=== PATIENT | female | born 1955 | race Caucasian/White ===

== ENCOUNTER 2017-02-17 06:48 | Emergency (ER) | payer BC, SELFPAY ==
[~2017-02-17] VITALS: Ht 157.5 cm; Wt 76.7 kg
[~2017-02-17 06:48] MED LIST: AMLO5TAB2 PO; ASPI81TA85 PO; HYDR-3713 PO; OMEP20CA3 PO; TIZA4CAP3 PO
[2017-02-17 06:53] VITALS: BP 160/92
[2017-02-17] MEDS ORDERED: MELO7.5T6 (07:00)
[2017-02-17] MEDS ORDERED: PRED20TA PO (07:28)
[2017-02-17] MEDS ORDERED: ROBA500T PO (07:28)
[2017-02-17] MEDS ORDERED: ULTR50TA PO (07:28)
== END 2017-02-17 07:36 | disposition home or self-care (01) ==
LOC: M ED 07:36
DX: M54.41 Lumbago with sciatica, right side (principal); M54.42 Lumbago with sciatica, left side

== ENCOUNTER → 2017-09-08 | Outpatient (CLI) | payer SELFPAY ==
[~2017-09-08] MED LIST changes: +IBUP-1022 PO; +IMOD2TAB16 PO; +LOMO2.5T PO; +MELO7.5T7; +PRED20TA PO; +ROBA500T PO; +ULTR50TA8 PO; +ZOFR4TAB3 PO
--- NOTE | 2017-09-08 13:24 | REP ---
PELVIC ULTRASOUND: Real-time sonographic evaluation of the pelvis performed utilizing transabdominal and endovaginal technique. The urinary bladder measures 3.1 x 3.1 x 5.2 cm. Uterus measures 6.5 x 2.5 x 4.1 cm. Endometrial thickness is 2 mm. Nabothian cysts are seen in the region of the cervix. Right ovary measures 4.8 x 3.1 x 4.1 cm. There is a complex septated cyst of the right ovary 4.1 x 3.0 x 3.9 cm. Left ovary measures 2.4 x 2.1 x 2.1 cm and also contains a septated cyst measuring 2.0 x 1.8 x 1.5 cm. There is blood flow seen in each ovary with duplex Doppler evaluation, with no torsion, RI right ovary is 0.48 and left ovary 0.75. No free fluid is seen. IMPRESSION: Bilateral septated cysts of the ovaries, right larger than left as discussed above. The septation in the right ovarian cyst is somewhat thick with underlying internal echoes and therefore this is not a simple cyst. In a postmenopausal patient, differential diagnosis would include cystadenoma or cystadenocarcinoma. Consider surgical evaluation. Signed by Santos Arriola MD 09/08/2017 01:32 P
== END ==
LOC: M RAD 11:02
PROVIDERS: ATTEND Physician Assistant Medical
DX: N83.202 Unspecified ovarian cyst, left side (principal); N83.201 Unspecified ovarian cyst, right side

== ENCOUNTER → 2017-11-06 | Outpatient (CLI) | payer SELFPAY ==
[2017-11-06 20:23] LABS: CA 125 12.9 U/ML (<30.2)
== END ==
LOC: M WUC 15:51
DX: D27.1 Benign neoplasm of left ovary (principal)

== ENCOUNTER → 2017-12-23 | Outpatient (REF) | payer SELFPAY ==
[2017-12-23 20:37] LABS: BASO % 0.5 % (0.0-1.0); EOS # 0.1 10^3/uL (0.0-0.50); EOS % 0.9 % (0.0-3.0); HEMATOCRIT 42.2 % (36.0-47.0); HEMOGLOBIN 13.8 g/dl (12.0-16.0); IMMATURE GRANULOCYTE % 0.1 % (0-3.0); LYMPH # 3.2 10^3/uL (1.5-4.5); LYMPH % 42.1 % (24.0-44.0); MEAN CORPUSCULAR HEMOGLOBIN 28.5 pg (27.0-33.0); MEAN CORPUSCULAR HGB CONC 32.7 g/dl (32.0-36.5); MEAN CORPUSCULAR VOLUME 87.2 fl (80.0-96.0); MONO # 0.4 10^3/uL (0.0-0.8); MONO % 5.6 % (0.0-5.0); NEUTROPHILS # 3.8 10^3/uL (1.8-7.7); NEUTROPHILS % 50.8 % (36.0-66.0); PLATELET COUNT, AUTOMATED 290 10^3/uL (150-450); RED BLOOD COUNT 4.84 10^6/uL (4.00-5.40); RED CELL DISTRIBUTION WIDTH 14.6 % (11.5-14.5); WHITE BLOOD COUNT 7.6 10^3/uL (4.0-10.0)
[2017-12-23 20:43] LABS: ALBUMIN 4.1 GM/DL (3.2-5.2); ALBUMIN/GLOBULIN RATIO 1.21 (1.00-1.93); ALKALINE PHOSPHATASE 83 U/L (45-117); ALT/SGPT 15 U/L (12-78); ANION GAP 5 MEQ/L (8-16); AST/SGOT 14 U/L (7-37); BILIRUBIN,TOTAL 0.3 MG/DL (0.2-1.0); BLOOD UREA NITROGEN 20 MG/DL (7-18); CALCIUM LEVEL 8.8 MG/DL (8.8-10.2); CARBON DIOXIDE LEVEL 29 MEQ/L (21-32); CHLORIDE LEVEL 109 MEQ/L (98-107); GLOMERULAR FILTRATION RATE > 60.0 (>45); GLUCOSE, FASTING 83 MG/DL (70-100); POTASSIUM SERUM 4.2 MEQ/L (3.5-5.1); SODIUM LEVEL 143 MEQ/L (136-145); TOTAL PROTEIN 7.5 GM/DL (6.4-8.2)
== END ==
LOC: M SFHCADAM 14:15
DX: Z01.818 Encounter for other preprocedural examination (principal)
CPT/HCPCS: 80053

== ENCOUNTER 2018-01-06 05:38 | Day surgery (SDC) | payer SELFPAY ==
[2018-01-06] MEDS ORDERED: LIDOCAINE 1% MDV 20ML VIAL SQ (05:45)
[2018-01-06] MEDS: LR 1,000 ML IV ×2 (06:28→13:55)
[2018-01-06] MEDS ORDERED: LIDOCAINE 2% INJ 100 MG/5 ML SDV (FOR ANES.) As Ordered (08:46)
[2018-01-06] MEDS ORDERED: HYDROmorphone HCL 2 MG/ML 1ML VIAL (J1170) As Ordered (08:46)
[2018-01-06] MEDS ORDERED: ONDANSETRON 4MG/2ML VIAL (J2405) As Ordered ×2 (08:46→10:26)
[2018-01-06] MEDS ORDERED: dexameTHASONE 4 MG/ML 1ML VIAL (J1100) As Ordered (08:46)
[2018-01-06] MEDS ORDERED: KETOROLAC 60 MG/2 ML VIAL (J1885) As Ordered (08:46)
[2018-01-06] MEDS ORDERED: NEOSTIGMINE 10 MG/10 ML VIAL (J2710) As Ordered (08:46)
[2018-01-06] MEDS ORDERED: PROPOFOL 200 MG/20 ML VIAL As Ordered (08:46)
[2018-01-06] MEDS ORDERED: GLYCOPYRROLATE INJ 0.2 MG/ML 2 ML VIAL As Ordered (08:46)
[2018-01-06] MEDS ORDERED: MIDAZOLAM INJ 2 MG/2 ML VIAL (J2250) As Ordered (08:47)
[2018-01-06] MEDS ORDERED: fentaNYL 100 MCG/2 ML INJECTION (J3010) As Ordered (08:47)
[2018-01-06] MEDS ORDERED: ROCURONIUM BROMIDE 50 MG/5 ML VIAL As Ordered (08:51)
[2018-01-06] MEDS: BUPIVACAINE HCL 0.25% 30 ML VIAL As Ordered (09:30)
[2018-01-06] MEDS: METHYLENE BLUE 0.5% (5MG/ML) 10 ML AMP (PROVAYBLUE)(Q9968 PER 1MG) As Ordered (09:43)
[2018-01-06] MEDS ORDERED: HYDROmorphone HCL 1 MG/ML SYRINGE (J1170) IV (10:30)
[2018-01-06] MEDS ORDERED: fentaNYL 100 MCG/2 ML INJECTION (J3010) IV (10:30)
[2018-01-06] MEDS ORDERED: PERCOCET 5MG/325MG TAB PO ×2 (10:30→10:45)
[2018-01-06] MEDS: ONDANSETRON 4MG/2ML VIAL (J2405) IV (10:33)
[2018-01-06] MEDS ORDERED: LR 1,000 ML IV (10:45)
[2018-01-06] MEDS ORDERED: zolPIDEM TARTRATE 5 MG TAB PO (10:45)
[2018-01-06] MEDS ORDERED: MORPHINE 4 MG/ML 1ML VIAL (J2270) IV (10:45)
[2018-01-06] MEDS ORDERED: PROMETHAZINE INJ 25 MG/ML VIAL (J2550) IV (10:45)
[2018-01-06] MEDS: KETOROLAC 30 MG/ML VIAL (J1885) IV ×2 (13:56→20:52)
[2018-01-06] MEDS: PERCOCET 5MG/325MG TAB PO (16:32)
[2018-01-07] MEDS: KETOROLAC 30 MG/ML VIAL (J1885) IV ×2 (03:02→09:07)
[2018-01-07 07:22] LABS: HEMATOCRIT 37.5 % (36.0-47.0); HEMOGLOBIN 12.4 g/dl (12.0-16.0); MEAN CORPUSCULAR HEMOGLOBIN 27.6 pg (27.0-33.0); MEAN CORPUSCULAR HGB CONC 33.1 g/dl (32.0-36.5); MEAN CORPUSCULAR VOLUME 83.5 fl (80.0-96.0); PLATELET COUNT, AUTOMATED 249 10^3/uL (150-450); RED BLOOD COUNT 4.49 10^6/uL (4.00-5.40); RED CELL DISTRIBUTION WIDTH 13.8 % (11.5-14.5); WHITE BLOOD COUNT 11.9 10^3/uL (4.0-10.0)
== END 2018-01-07 10:40 | disposition home or self-care (01) ==
LOC: M SDC 05:38 → M PED 11:18
DX: D27.0 Benign neoplasm of right ovary (principal); R10.2 Pelvic and perineal pain; M06.9 Rheumatoid arthritis, unspecified; E78.5 Hyperlipidemia, unspecified; K21.9 Gastro-esophageal reflux disease without esophagitis; I10 Essential (primary) hypertension; E66.9 Obesity, unspecified; Z79.899 Other long term (current) drug therapy; Z79.82 Long term (current) use of aspirin; Z78.0 Asymptomatic menopausal state; Z98.51 Tubal ligation status; Z72.0 Tobacco use
CPT/HCPCS: 58571

== ENCOUNTER → 2019-02-17 | Outpatient (REF) | payer SELFPAY ==
[~2019-02-17] MED LIST changes: +ALEV220T26 PO; -AMLO5TAB2 PO; +AMLO5TAB6 PO; +ASPI81TA26 PO; +OXYC1TAB23 PO; +TIZA4CAP PO; -TIZA4CAP3 PO; +ZOFR4TAB14 PO; -ZOFR4TAB3 PO
[2019-02-17 13:31] LABS: BASO % 0.4 % (0.0-1.0); EOS % 0.4 % (0.0-3.0); HEMATOCRIT 38.8 % (36.0-47.0); HEMOGLOBIN 12.8 g/dl (12.0-15.5); LYMPH # 1.5 10^3/uL (1.5-4.5); LYMPH % 14.8 % (24.0-44.0); MEAN CORPUSCULAR HEMOGLOBIN 28.1 pg (27.0-33.0); MEAN CORPUSCULAR VOLUME 85.1 fl (80.0-96.0); MONO # 0.4 10^3/uL (0.0-0.8); MONO % 3.7 % (0.0-5.0); NEUTROPHILS # 8.3 10^3/uL (1.8-7.7); NEUTROPHILS % 80.2 % (36.0-66.0); PLATELET COUNT, AUTOMATED 397 10^3/uL (150-450); RED BLOOD COUNT 4.56 10^6/uL (4.00-5.40); WHITE BLOOD COUNT 10.4 10^3/uL (4.0-10.0)
[2019-02-17 14:13] LABS: ALBUMIN 3.5 GM/DL (3.2-5.2); ALT/SGPT 28 U/L (12-78); BILIRUBIN,TOTAL 0.3 MG/DL (0.2-1.0); BLOOD UREA NITROGEN 22 MG/DL (7-18); CALCIUM LEVEL 8.2 MG/DL (8.8-10.2); CARBON DIOXIDE LEVEL 27 MEQ/L (21-32); CHLORIDE LEVEL 107 MEQ/L (98-107); CHOLESTEROL LEVEL 208 MG/DL (<200); CHOLESTEROL RISK RATIO 4.244 (<5); CREATININE FOR GFR 0.71 MG/DL (0.55-1.30); GLOMERULAR FILTRATION RATE > 60.0 (>45); GLUCOSE, FASTING 99 MG/DL (70-100); HDL CHOLESTEROL 49 MG/DL (>40); LDL CHOLESTEROL 86.6 MG/DL (<100); NON-HDL-C 159 MG/DL; SODIUM LEVEL 140 MEQ/L (136-145); THYROID STIMULATING HORMONE 0.958 uIU/ML (0.358-3.740); TOTAL PROTEIN 7.3 GM/DL (6.4-8.2); TRIGLYCERIDES LEVEL 362 MG/DL (<150)
== END ==
LOC: M SFHCADAM 11:04
PROVIDERS: ATTEND Physician Assistant Medical
DX: I10 Essential (primary) hypertension (principal); K21.9 Gastro-esophageal reflux disease without esophagitis; E78.2 Mixed hyperlipidemia

== ENCOUNTER → 2019-03-11 | Outpatient (CLI) | payer SELFPAY ==
--- NOTE | 2019-03-11 16:10 | REP ---
HEPATIC ULTRASOUND: 03/11/2019. Comparison: CT abdomen 08/27/2017. Clinical history: Liver cysts. Findings: Two liver cysts on the prior CT were noted. In the right hepatic lobe peripherally is a 2.8 x 3 x 2.8 cm simple cyst and this is unchanged in size and contour from that CT finding in 09/11. The smaller lateral segment left hepatic lobe cyst is obscured on this study by gas shadowing. That cyst by CT was 2.2 cm but it is in an elongated left hepatic lobe lateral segment wrapping around the spleen on CT. Although carefully evaluated lobe did not demonstrate cyst on this exam today. There is diffuse mild increased echogenicity suggesting fatty infiltration of the liver. There is no solid hepatic mass, biliary dilatation or ascites. Gallbladder shows wall thickness of 2.6 mm and normal filling. There is no stone, sludge or pericholecystic fluid. No sonographic Smith sign. Common duct is to 3.6 mm and unremarkable. Pancreas is seen only in limited fashion without focal mass in the segments identified. The right kidney is 11.8 x 4.2 x 4.2 cm without stone, mass, cyst or hydronephrosis. There is no free fluid. Impression: 1. Right hepatic cyst 3 cm in size and subcapsular in location unchanged since the CT 18 months ago. The left lobe cyst on that study was smaller and is not visible on today's ultrasound. I believe it is a technical issue as the left lobe is elongated and wrapping around the spleen. Therefore is prone to artifact limiting the evaluation of that lobe. 2. Gallbladder, common duct, visualized portion of pancreas and right kidney unremarkable. Electronically Signed by Jayden Buchanan MD 03/11/2019 05:17 P
== END ==
LOC: M RAD 07:26
PROVIDERS: ATTEND Physician Assistant Medical
DX: K76.89 Other specified diseases of liver (principal)

== ENCOUNTER → 2019-04-08 | Outpatient (CLI) | payer SELFPAY ==
[~2019-04-08] MED LIST changes: +GASTROGRAFIN SOLUTION 30ML (Q9963) As Ordered ONE; +ISOVUE-370 76% 100ML VIAL (Q9967) As Ordered ONE
--- NOTE | 2019-04-08 15:26 | REP ---
CT ABDOMEN AND PELVIS WITH IV CONTRAST AND ORAL CONTRAST: TECHNIQUE: Axial contrast enhanced images from the lung bases to the pubic symphysis using 100 mL Isovue 370 intravenous contrast material with multiplanar reformations. Visualized lung bases demonstrate minor fibrotic change. Stable cyst is seen in the left lobe of the liver and another is seen in the right lobe of the liver. These are unchanged since the prior study of 08/27/2107. Spleen is normal in size with no intrinsic abnormality. Left adrenal nodule is stable compatible with an adenoma, 1.6 cm in diameter. Right adrenal is normal. Pancreas is normal. Kidneys demonstrate no significant abnormality. There is no hydronephrosis. There is atherosclerotic calcification of the abdominal aorta without aneurysm. There is no adenopathy. There is no free air or free fluid. There is no bowel wall thickening. The appendix is normal. There is mild sigmoid diverticulosis without acute diverticulitis. No pelvic mass is seen. The patient has had a hysterectomy. Left ovary is again seen containing a small cystic structure and is unchanged since the prior study. There are degenerative changes of the spine. IMPRESSION: Two stable liver cysts. Stable left adrenal adenoma 1.6 cm in diameter. Mild sigmoid diverticulosis with no acute diverticulitis. Stable appearing left ovary. Patient has had a hysterectomy and right salpingo-oophorectomy. No adenopathy, free air or free fluid. Electronically Signed by Santos Arriola MD 04/08/2019 07:36 P
== END ==
LOC: M RAD 12:49
PROVIDERS: ATTEND Physician Assistant Medical
DX: D35.02 Benign neoplasm of left adrenal gland (principal); K76.89 Other specified diseases of liver; Z90.79 Acquired absence of other genital organ(s); K57.30 Diverticulosis of large intestine without perforation or abscess without bleeding
CPT/HCPCS: 74177; Q9963; Q9967

== ENCOUNTER → 2019-05-02 | Outpatient (CLI) | payer SELFPAY ==
[~2019-05-02] MED LIST changes: -GASTROGRAFIN SOLUTION 30ML (Q9963) As Ordered ONE; -ISOVUE-370 76% 100ML VIAL (Q9967) As Ordered ONE; -OMEP20CA3 PO; +OMEP20CA4 PO
--- NOTE | 2019-05-02 22:18 | REP ---
Clinical: Cough . Comparison: 02/10/2019 . Technique: PA and lateral. Findings: The mediastinum and cardiac silhouette are normal. The lung franklin are clear and without acute consolidation, effusion, or pneumothorax. The skeletal structures are intact and normal. Impression: 1. No acute cardiopulmonary process. Electronically Signed by Luca Hernandez MD 05/02/2019 10:10 P
== END ==
LOC: M ADAMS 11:42
PROVIDERS: ATTEND Family Medicine
DX: R05 Cough (principal)

== ENCOUNTER → 2019-07-08 | Outpatient (CLI) | payer MEDICAID, OTHER ==
--- NOTE | 2019-07-08 10:57 | REP ---
BILATERAL MAMMOGRAM AND BILATERAL BREAST ULTRASOUND: Patient complains of pain in the upper outer quadrant of each breast. There is no family history of breast cancer. Tyrer-Cuzick lifetime risk of breast cancer 6.6%. MLO and CC views of both breasts performed including ML views. Comparison is made with prior studies most recently 03/21/2016. Mild scattered fibroglandular tissue is again seen bilaterally. A well circumscribed nodule is again seen centrally in the mid third right breast, stable. No new mass or clustered microcalcifications are seen. Coarse benign type calcifications are seen in the right breast. There is no architectural distortion. Normal-appearing lymph nodes are seen in both axillary regions. Real-time sonographic evaluation of the right upper quadrant of each breast performed in the region of pain. In the right breast at 1-o'clock position is a tiny 3 mm cyst. In the left breast, at 12-o'clock position, there is an oval, well circumscribed hypoechoic nodule 6 x 3 x 5 mm, wider than tall without distal shadowing. A somewhat appearing oval nodule is seen at 1-o'clock position measuring 4 x 3 x 4 mm. There is also a 3 mm cyst at 1-o'clock position. IMPRESSION: BIRADS 3: BI-RADS/ACR category 3 mammogram. Probably Benign Findings. ACR 3 probably benign. No mammographic abnormality is seen bilaterally as discussed above. At the 12-o'clock position of the left breast sonographically, is an oval hypoechoic nodule 6 x 3 x 5 mm with smooth margins and no distal shadowing, appearing wider than tall. A similar appearing nodule at 1-o'clock position measures 4 x 3 x 4 mm. These could represent small solid nodules such as fibroadenomas or intramammary lymph nodes. Recommend followup ultrasound in 6 months for these two oval nodules. This mammogram was interpreted with the aid of an FDA-approved computer-aided detection system. A. Negative x-ray reports should not delay biopsy if a dominant or clinically suspicious mass is present. B. Four to eight percent of cancers are not identified by x-ray. C. Adenosis and dense breasts may obscure an underlying neoplasm. The patient states she/he had a clinical breast exam in June 2015. The patient letter being requested is M3 Electronically Signed by Santos Arriola MD 07/08/2019 12:20 P
== END ==
LOC: M RAD 08:21
PROVIDERS: ATTEND Physician Assistant Medical
DX: N63.20 Unspecified lump in the left breast, unspecified quadrant (principal)

== ENCOUNTER → 2019-08-29 | Outpatient (CLI) | payer SELFPAY ==
--- NOTE | 2019-08-29 20:30 | ECHO ---
DATE OF PROCEDURE: 08/29/2019 REFERRING PHYSICIAN: Wendy Yi INDICATION: Essential hypertension. Height 157 cm, weight 88 kg. DIMENSIONS: IVS: 1.2 LV: 2.9 LVPW: 1.2 LA: 3.4 Aorta: 3.4 IVC: 1.3 Mitral E wave velocity: 62 A wave: 80 E prime septal: 7.4 E prime lateral: 9.7 FINDINGS: The study is of fair technical quality with difficult visualization. The patient is in sinus rhythm. Left ventricle is normal size and overall normal systolic function, estimated left ventricular ejection fraction (LVEF) 60-65%. Calculated LVEF was 64%. Mild LVH is noted. Right ventricle was poorly seen but grossly appears normal. Both atria appear normal. Aortic, mitral and tricuspid valves are reasonably well seen and appear grossly normal with some minimal degenerative abnormalities. Pulmonic valve was not visualized. No pericardial effusion is noted. Inferior vena cava is normal size. Aortic root and aortic arch appear normal. Abdominal aorta was not visualized. Doppler interrogation reveals no significant aortic and mitral valvular disease. There is trace tricuspid insufficiency with calculated normal pulmonary artery pressure. Mitral inflow pattern and tissue Doppler imaging of mitral annulus revealed grade 1 diastolic dysfunction. CONCLUSIONS: 1. Study is of fair technical quality. 2. Normal left ventricular (LV) size with mild left ventricular hypertrophy (LVH) and preserved LV systolic function, grade 1 diastolic dysfunction. 3. No significant valvular disease. 4. Likely normal central venous pressure and normal pulmonary artery pressure. COMMENT: Subacute bacterial endocarditis (SBE) prophylaxis is not recommended.
--- NOTE | 2019-08-29 21:46 | ECGEPIP ---
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
== END ==
LOC: M CARPUL 07:59
PROVIDERS: ATTEND Physician Assistant Medical
DX: I10 Essential (primary) hypertension (principal); R60.1 Generalized edema

== ENCOUNTER → 2020-01-30 | Outpatient (REF) | payer SELFPAY ==
[~2020-01-30] MED LIST changes: +OMEP1CAP73 PO; -OMEP20CA4 PO
[2020-01-30 12:55] LABS: ALBUMIN 3.8 GM/DL (3.2-5.2); ALT/SGPT 42 U/L (12-78); BILIRUBIN,TOTAL 0.5 MG/DL (0.2-1.0); BLOOD UREA NITROGEN 17 MG/DL (7-18); CALCIUM LEVEL 9.3 MG/DL (8.8-10.2); CARBON DIOXIDE LEVEL 29 MEQ/L (21-32); CHLORIDE LEVEL 107 MEQ/L (98-107); CHOLESTEROL LEVEL 278 MG/DL (<200); CHOLESTEROL RISK RATIO 5.791 (<5); CREATININE FOR GFR 0.82 MG/DL (0.55-1.30); GLOMERULAR FILTRATION RATE > 60.0 (>45); GLUCOSE, FASTING 108 MG/DL (70-100); HDL CHOLESTEROL 48 MG/DL (>40); LDL CHOLESTEROL 187 MG/DL (<100); NON-HDL-C 230 MG/DL; POTASSIUM SERUM 3.7 MEQ/L (3.5-5.1); SODIUM LEVEL 141 MEQ/L (136-145); TOTAL PROTEIN 7.8 GM/DL (6.4-8.2); TRIGLYCERIDES LEVEL 213 MG/DL (<150)
[2020-01-30 13:01] LABS: HEMOGLOBIN A1c 6.1 %
== END ==
LOC: M SFHCADAM 09:20
PROVIDERS: ATTEND Physician Assistant Medical
DX: K21.9 Gastro-esophageal reflux disease without esophagitis (principal); E78.2 Mixed hyperlipidemia; I10 Essential (primary) hypertension; E66.01 Morbid (severe) obesity due to excess calories

== ENCOUNTER → 2020-01-31 | Outpatient (CLI) | payer OTHER ==
--- NOTE | 2020-01-31 15:45 | REP ---
FOCUSED LEFT BREAST SONOGRAPHY: HISTORY: 6-month followup study. Comparison sonography July 08, 2019. SONOGRAPHIC FINDINGS: Scanning in the 12 o'clock position demonstrates the previously noted 6 mm hypoechoic oval shaped area. At 1 o'clock, the previously noted 4 mm hypoechoic lesion is again seen. These are unchanged. No new sonographic abnormality. IMPRESSION: Stable BIRADS category 3 probably benign left breast sonographic findings. Repeat bilateral screening mammography and focused left breast sonography suggested in 6 months.
== END ==
LOC: M WHC 12:49
PROVIDERS: ATTEND Physician Assistant Medical
DX: R92.8 Other abnormal and inconclusive findings on diagnostic imaging of breast (principal); N63.25 Unspecified lump in the left breast, overlapping quadrants; N63.21 Unspecified lump in the left breast, upper outer quadrant

== ENCOUNTER → 2020-07-03 | Outpatient (REF) | payer OTHER ==
[~2020-07-03] MED LIST changes: +AMLO1TAB24 PO; -AMLO5TAB6 PO; -ASPI81TA85 PO; +ASPI81TA86 PO
[2020-07-03 19:01] LABS: BLOOD UREA NITROGEN 31 MG/DL (7-18); CALCIUM LEVEL 8.9 MG/DL (8.8-10.2); CARBON DIOXIDE LEVEL 29 MEQ/L (21-32); CHLORIDE LEVEL 105 MEQ/L (98-107); CREATININE FOR GFR 0.86 MG/DL (0.55-1.30); GLOMERULAR FILTRATION RATE > 60.0 (>45); GLUCOSE, FASTING 92 MG/DL (70-100); POTASSIUM SERUM 3.5 MEQ/L (3.5-5.1); SODIUM LEVEL 141 MEQ/L (136-145)
== END ==
LOC: M LABDRWAD 17:59
PROVIDERS: ATTEND Physician Assistant Medical
DX: I10 Essential (primary) hypertension (principal)

== ENCOUNTER → 2020-08-08 | Outpatient (CLI) | payer OTHER ==
--- NOTE | 2020-08-13 09:58 | REP ---
DATE: 08/08/2020 TIME: 09:19 a.m. BILATERAL MAMMOGRAPHY WITH CAD, 3D TOMOGRAPHY AND TARGETED LEFT BREAST SONOGRAPHY: HISTORY: Abnormal left breast ultrasound. The patient reports discomfort and tenderness. Six month follow up left breast ultrasound. Bilateral breast pain. COMPARISON MAMMOGRAPHY: 07/08/2019 and 03/21/2016 COMPARISON SONOGRAPHY: 01/31/2020 on the left breast. COMPARISON MAMMOGRAPHY: Also reviewed from August 24, 2012. MAMMOGRAPHIC FINDINGS: Scattered fibroglandular elements are seen. The [place] volumetric breast parenchymal density pattern is A. There is a stable small well circumscribed nodule in the right breast unchanged from 2012 prior study. There are normal appearing lymph nodes bilaterally. No mass, architectural distortion, ashwin density or microcalcification has developed. No mammographic abnormality. SONOGRAPHIC FINDINGS: Targeted left sonography is again performed. In the 12 o'clock position, no abnormalities are noted. Somewhat heterogeneous fibroglandular background echotexture is seen. At 1 o'clock, 6 cm from the nipple, there is a 5 mm hypoechoic area unchanged from the prior study. Adjacent to this at 1 o'clock, there is a 3 mm hypoechoic nodule. These findings are thought to be identical from the January 31, 2020 and July 08, 2019 prior left breast ultrasound images. One year stability. FINDINGS: Stable BI-RADS category 3, probably benign findings. Stable hypoechoic nodule visible on ultrasound in the left breast at 1 o'clock. Six month followup left breast sonography recommended with annual bilateral mammography. The mammogram was read with a FDA improved computer aided detection device. The patient's Tyrer-Cuzick lifetime breast cancer risk score is 6.1%. The patient's letter is M3. BIRGITD
== END ==
LOC: M WHC 08:53
PROVIDERS: ATTEND Physician Assistant Medical
DX: R92.8 Other abnormal and inconclusive findings on diagnostic imaging of breast (principal); N63.21 Unspecified lump in the left breast, upper outer quadrant

== ENCOUNTER → 2020-10-11 | Outpatient (CLI) | payer SELFPAY | LOC: M LABSMTC 14:05 | PROVIDERS: ATTEND Pediatrics | DX: Z20.828 Contact with and (suspected) exposure to other viral communicable diseases (principal) ==

== ENCOUNTER → 2021-02-14 | Outpatient (CLI) | payer OTHER ==
--- NOTE | 2021-02-14 12:59 | REP ---
INDICATION: 6 MO F/U , LT BREAST U/S,CAT 3. COMPARISON: Comparison sonograms are from 08 July 2019, 31 January 2020, and 08 August 2020. Comparison mammography 08 August 2020.. TECHNIQUE: Whole breast left-sided breast ultrasound is performed. FINDINGS: Heterogeneous fibroglandular background echotexture is seen. And the 1 o'clock position, 6 cm from the nipple there is a 0.3 by 0.3 x 0.3 cm hypoechoic structure with echogenic margins and acoustic shadowing unchanged from prior studies and consistent with a small oil cyst. The there are a few the visible retroareolar ducts. In the 1 o'clock position in the left breast 6 cm from the nipple the previously noted 0.5 x 0.3 x 0.4 cm hypoechoic area is again seen unchanged from the July 08, 2019 study. IMPRESSION: Stable BI-RADS category 3 findings. Six-month follow-up ultrasound and bilateral screening mammography suggested in 6 months. <Electronically signed by Roldan Patel > 02/14/21 [id number]
== END ==
LOC: M WHC 09:51
PROVIDERS: ATTEND Physician Assistant Medical
DX: N63.21 Unspecified lump in the left breast, upper outer quadrant (principal)

== ENCOUNTER → 2021-02-15 | Outpatient (CLI) | payer OTHER ==
--- NOTE | 2021-02-15 10:44 | REP ---
INDICATION: HISTORY OF NICOTINE DEPENDENCE COMPARISON: 02/05/2013 TECHNIQUE: Axial noncontrast images from the thoracic inlet to the upper abdomen using low-dose lung screening technique (LDCT). FINDINGS: Bilateral lung franklin are well aerated and clear. No consolidation, significant nodule or mass lesion. No effusion or pneumothorax. Tracheobronchial tree is patent. IMPRESSION: Lung-RADS category 1. No suspicious nodule or mass. Management recommendations include annual low-dose CT surveillance. <Electronically signed by Luca Hernandez > 02/15/21 [id number]
== END ==
LOC: M RAD 10:10
PROVIDERS: ATTEND Physician Assistant Medical
DX: Z12.2 Encounter for screening for malignant neoplasm of respiratory organs (principal); Z87.891 Personal history of nicotine dependence

== ENCOUNTER → 2021-08-22 | Outpatient (CLI) | payer MEDICARE ==
--- NOTE | 2021-08-22 15:15 | REP ---
INDICATION: ACUTE PAIN OF RIGHT KNEE COMPARISON: 06/09/2011 a 3 view exam TECHNIQUE: Five views FINDINGS: Tricompartmental marginal osteophytosis has developed since the last exam and seen in conjunction with medial compartmental narrowing with subchondral sclerosis and asymmetric patellofemoral joint space narrowing. There is no acute fracture, dislocation, or subluxation. IMPRESSION: Chronic changes as described above. <Electronically signed by Yoshi Calle > 08/22/21 [id number]
== END ==
LOC: M ADAMS 11:32
PROVIDERS: ATTEND Physician Assistant Medical
DX: M25.761 Osteophyte, right knee (principal); M25.561 Pain in right knee; K21.9 Gastro-esophageal reflux disease without esophagitis; E78.2 Mixed hyperlipidemia; I10 Essential (primary) hypertension; Z79.899 Other long term (current) drug therapy; Z23 Encounter for immunization
CPT/HCPCS: 73564; 80053; 80061; 82306; 83036; 84443; 85025; 90682; G0008; G0402; G0404

== ENCOUNTER → 2021-08-22 | Outpatient (REF) | payer MEDICARE ==
[2021-08-22 12:55] LABS: BASO % 0.4 % (0.0-1.0); EOS # 0.1 10^3/uL (0.0-0.5); EOS % 1.3 % (0.0-3.0); HEMATOCRIT 40.5 % (36.0-47.0); HEMOGLOBIN 13.2 g/dl (12.0-15.5); LYMPH # 2.3 10^3/uL (1.5-5.0); LYMPH % 33.5 % (24.0-44.0); MEAN CORPUSCULAR HEMOGLOBIN 27.9 pg (27.0-33.0); MEAN CORPUSCULAR HGB CONC 32.6 g/dl (32.0-36.5); MEAN CORPUSCULAR VOLUME 85.6 fl (80.0-96.0); MONO # 0.5 10^3/uL (0.0-0.8); MONO % 7.3 % (2.0-8.0); NEUTROPHILS # 3.9 10^3/uL (1.5-8.5); NEUTROPHILS % 57.2 % (36.0-66.0); PLATELET COUNT, AUTOMATED 309 10^3/uL (150-450); RED BLOOD COUNT 4.73 10^6/uL (4.00-5.40); WHITE BLOOD COUNT 6.8 10^3/uL (4.0-10.0)
[2021-08-22 13:20] LABS: ALBUMIN 3.6 GM/DL (3.2-5.2); ALT/SGPT 33 U/L (12-78); BILIRUBIN,TOTAL 0.4 MG/DL (0.2-1.0); BLOOD UREA NITROGEN 16 MG/DL (7-18); CALCIUM LEVEL 9.2 MG/DL (8.8-10.2); CARBON DIOXIDE LEVEL 28 MEQ/L (21-32); CHLORIDE LEVEL 106 MEQ/L (98-107); CHOLESTEROL LEVEL 201 MG/DL (<200); CHOLESTEROL RISK RATIO 3.654 (<5); CREATININE FOR GFR 0.73 MG/DL (0.55-1.30); GLOMERULAR FILTRATION RATE > 60.0 (>45); GLUCOSE, FASTING 102 MG/DL (70-100); HDL CHOLESTEROL 55 MG/DL (>40); LDL CHOLESTEROL 117 MG/DL (<100); NON-HDL-C 146 MG/DL; POTASSIUM SERUM 4.1 MEQ/L (3.5-5.1); SODIUM LEVEL 140 MEQ/L (136-145); TOTAL 25(OH) VITAMIN D 20.9 NG/ML (30.0-100.0); TOTAL PROTEIN 7.1 GM/DL (6.4-8.2); TRIGLYCERIDES LEVEL 144 MG/DL (<150)
[2021-08-22 13:38] LABS: HEMOGLOBIN A1c 5.7 %
== END ==
LOC: M SFHCADAM 11:31
PROVIDERS: ATTEND Physician Assistant Medical
DX: K21.9 Gastro-esophageal reflux disease without esophagitis (principal); E78.2 Mixed hyperlipidemia; I10 Essential (primary) hypertension; Z79.899 Other long term (current) drug therapy

== ENCOUNTER → 2021-09-04 | Outpatient (CLI) | payer MEDICARE ==
--- NOTE | 2021-09-04 08:57 | REP ---
INDICATION: RUQ ABD PAIN. COMPARISON: 03/11/2019 TECHNIQUE: Real-time sonographic evaluation of the right upper quadrant with Doppler FINDINGS: Multiple ultrasonographic images of the liver show diffuse increased echoes throughout the hepatic parenchyma without evidence of a mass or ductal dilatation. There are 2 hepatic cysts. The common bile duct measures approximately 5 mm in its greatest transverse dimension. Multiple ultrasonographic images of the gallbladder shows at least 1 echogenic focus adherent to the gallbladder wall which casts comet tail artifact. There are no echogenic foci within the gallbladder lumen, which casts acoustic shadows. There is no pericholecystic edema. Images of the pancreatic region show no gross abnormality. The imaged portion of the right kidney is unremarkable. IMPRESSION: 1. Fatty infiltration of the liver. 2. Liver cysts unchanged. 3. Evidence of early adenomyomatosis of the gallbladder wall. Accredited by the [employer] in General Ultrasound. <Electronically signed by Yoshi Calle > 09/04/21 [id number]
== END ==
LOC: M RAD 07:40
PROVIDERS: ATTEND Physician Assistant
DX: R10.11 Right upper quadrant pain (principal); K76.89 Other specified diseases of liver; K76.0 Fatty (change of) liver, not elsewhere classified

== ENCOUNTER → 2021-10-11 | Outpatient (CLI) | payer MEDICARE ==
[~2021-10-11] MED LIST changes: +HYDR-3490 PO; +LISI10TA22 PO; +OMEP40CA5 PO; +RA N1TAB PO; +SIMV20TA22 PO; +VITA500T21 PO
== END ==
LOC: M LABSMTC 10:01
PROVIDERS: ATTEND Anesthesiology
DX: Z11.52 Encounter for screening for COVID-19 (principal); Z20.822 Contact with and (suspected) exposure to COVID-19

== ENCOUNTER 2021-10-16 09:15 | Day surgery (SDC) | payer MEDICARE ==
[~2021-10-16] VITALS: Ht 157.5 cm; Wt 93.4 kg
[~2021-10-16 09:15] MED LIST changes: +NS 1,000 ML IV ONE; +OMEP-221 PO; -OMEP40CA5 PO; -RA N1TAB PO; -VITA500T21 PO
[2021-10-16] MEDS ORDERED: LIDOCAINE 2% 100MG/5ML SDV (FOR ANES.) As Ordered ONE (10:49)
[2021-10-16] MEDS ORDERED: propofoL 200 MG/20 ML VIAL As Ordered ONE (10:49)
--- NOTE | 2021-10-16 11:06 | ROOR ---
Patient Name: Amy Rios Procedure Date: 10/16/2021 10:44 AM Date of : 1955 Age: 66 Room: [facility] Gender: Female Note Status: Finalized Procedure: Colonoscopy Indications: Hematochezia Providers: DO Sriram Carpio MD: SAM Kohli Requesting Provider: Medicines: Propofol per Anesthesia Complications: No immediate complications. Procedure: Pre-Anesthesia Assessment: - Prior to the procedure, a History and Physical was performed, and patient medications and allergies were reviewed. The patient is competent. The risks and benefits of the procedure and the sedation options and risks were discussed with the patient. All questions were answered and informed consent was obtained. Patient identification and proposed procedure were verified by the physician, the nurse, the interior decorator painting and the sprinkler repair technician in the endoscopy suite. Mental Status Examination: alert and oriented. Airway Examination: normal oropharyngeal airway and neck mobility. Respiratory Examination: clear to auscultation. CV Examination: normal. Prophylactic Antibiotics: The patient does not require prophylactic antibiotics. Prior Anticoagulants: The patient has taken no previous anticoagulant or antiplatelet agents. ASA Grade Assessment: III - A patient with severe systemic disease. After reviewing the risks and benefits, the patient was deemed in satisfactory condition to undergo the procedure. The anesthesia plan was to use monitored anesthesia care (MAC). Immediately prior to administration of medications, the patient was re-assessed for adequacy to receive sedatives. The heart rate, respiratory rate, oxygen saturations, blood pressure, adequacy of pulmonary ventilation, and response to care were monitored throughout the procedure. The physical status of the patient was re-assessed after the procedure. The Colonoscope was introduced through the anus and advanced to the cecum, identified by appendiceal orifice and ileocecal valve. The colonoscopy was performed without difficulty. The patient tolerated the procedure well. Findings: A few small-mouthed diverticula were found in the sigmoid colon. Four hyperplastic polyps were found in the sigmoid colon. The polyps were 2 to 4 mm in size. These polyps were removed with a jumbo cold forceps. Resection and retrieval were complete. Estimated blood loss was minimal. Non-bleeding internal hemorrhoids were found during retroflexion. The hemorrhoids were mild and Grade II (internal hemorrhoids that prolapse but reduce spontaneously). Impression: - Diverticulosis in the sigmoid colon. - Four 2 to 4 mm polyps in the sigmoid colon, removed with a jumbo cold forceps. Resected and retrieved. - Non-bleeding internal hemorrhoids. Recommendation: - Patient has a contact number available for emergencies. The signs and symptoms of potential delayed complications were discussed with the patient. Return to normal activities tomorrow. Written discharge instructions were provided to the patient. - Await pathology results. - Repeat colonoscopy in 3 - 5 years for surveillance based on pathology results. - Return to physician video library assistant at appointment to be scheduled. Procedure Code(s): --- Professional --- 35707, Colonoscopy, flexible; with biopsy, single or multiple Diagnosis Code(s): --- Professional --- K64.1, Second degree hemorrhoids K63.5, Polyp of colon K92.1, Melena (includes Hematochezia) K57.30, Diverticulosis of large intestine without perforation or abscess without bleeding CPT copyright 2019 [employer]. All rights reserved. The codes documented in this report are preliminary and upon timber poisoner review may be revised to meet current compliance requirements. Santos Perez DO 10/16/2021 11:06:10 AM Electronically signed by Santos Perez DO Number of Addenda: 0 Note Initiated On: 10/16/2021 10:44 AM Estimated Blood Loss: Estimated blood loss was minimal.
[2021-10-16 11:28] VITALS: BP 121/75
== END 2021-10-16 11:29 | disposition home or self-care (01) ==
LOC: M OPP 09:15
PROVIDERS: ATTEND Surgery
DX: K63.5 Polyp of colon (principal); K57.30 Diverticulosis of large intestine without perforation or abscess without bleeding; K64.1 Second degree hemorrhoids; K92.1 Melena; K82.8 Other specified diseases of gallbladder; R19.4 Change in bowel habit; Z79.899 Other long term (current) drug therapy; Z87.891 Personal history of nicotine dependence

== ENCOUNTER → 2021-11-22 | Outpatient (CLI) | payer MEDICARE ==
[~2021-11-22] MED LIST changes: -NS 1,000 ML IV ONE; -OMEP-221 PO; +OMEP40CA5 PO
== END ==
LOC: M SOG 10:21
PROVIDERS: ATTEND Orthopaedic Surgery Adult Reconstructive Orthopaedic Surgery
DX: M25.561 Pain in right knee (principal); M17.0 Bilateral primary osteoarthritis of knee

== ENCOUNTER 2021-12-02 09:20 | Outpatient (RCR) | payer MEDICARE ==
[2021-12-10] MEDS ORDERED: VITA500T21 PO (09:49)
[2021-12-10] MEDS ORDERED: RA N1TAB PO (09:49)
[2021-12-24] MEDS ORDERED: OXYC-517 PO (11:42)
[2021-12-24] MEDS ORDERED: ASPI-551 PO (11:42)
== END 2021-12-23 ==
LOC: M PT 09:20
PROVIDERS: ATTEND Orthopaedic Surgery Adult Reconstructive Orthopaedic Surgery
DX: M17.11 Unilateral primary osteoarthritis, right knee (principal)

== ENCOUNTER → 2021-12-09 | Outpatient (CLI) | payer MEDICARE ==
[~2021-12-09] MED LIST changes: +RA N1TAB PO; +VITA500T21 PO
== END ==
LOC: M RAD 09:24
PROVIDERS: ATTEND Orthopaedic Surgery Adult Reconstructive Orthopaedic Surgery
DX: M17.11 Unilateral primary osteoarthritis, right knee (principal)

== ENCOUNTER → 2021-12-11 | Outpatient (REF) | payer MEDICARE ==
[~2021-12-11] MED LIST changes: +ASPI-551 PO; +OXYC-517 PO
[2021-12-11 16:36] LABS: BLOOD UREA NITROGEN 22 MG/DL (7-18); CALCIUM LEVEL 9.5 MG/DL (8.8-10.2); CARBON DIOXIDE LEVEL 26 MEQ/L (21-32); CHLORIDE LEVEL 108 MEQ/L (98-107); CREATININE FOR GFR 0.76 MG/DL (0.55-1.30); GLOMERULAR FILTRATION RATE > 60.0 (>45); GLUCOSE, FASTING 96 MG/DL (70-100); POTASSIUM SERUM 4.1 MEQ/L (3.5-5.1); SODIUM LEVEL 141 MEQ/L (136-145)
== END ==
LOC: M SFHCADAM 11:24
PROVIDERS: ATTEND Physician Assistant
DX: Z01.818 Encounter for other preprocedural examination (principal); Z79.899 Other long term (current) drug therapy

== ENCOUNTER → 2021-12-18 | Outpatient (CLI) | payer MEDICARE ==
[~2021-12-18] MED LIST changes: -ASPI-551 PO; -OXYC-517 PO
== END ==
LOC: M LABSMTC 11:10
PROVIDERS: ATTEND Anesthesiology
DX: Z01.818 Encounter for other preprocedural examination (principal); Z11.52 Encounter for screening for COVID-19

== ENCOUNTER 2021-12-23 07:41 | Observation (INO) | payer MEDICARE ==
[~2021-12-23] VITALS: Ht 157.5 cm; Wt 94.0 kg
[~2021-12-23 07:41] MED LIST changes: +ACETAMINOPHEN 500 MG TAB PO ONE; +LIDOCAINE 1% MDV 20ML VIAL SQ PRN; +LR 1,000 ML IV ONE; +NAPROXEN 250 MG TAB PO ONE; +NS 1,000 ML IV ONE; +PREGABALIN 25 MG CAP (LYRICA) PO ONE; +ROPIVA 125MG/EPINEPH 0.25MG/CLONID 40MCG/KETOR 15MG IN NS 50ML SYRINGE PA ONE; +ceFAZolin SOD 1 GM in D5W MINI-BAG PLUS 50 ML IV ONE; +dexameTHASONE 4 MG/ML 1ML VIAL (J1100 PER 1MG) IV ONE
[2021-12-23] MEDS ORDERED: fentaNYL 100 MCG/2 ML INJECTION As Ordered ONE (07:57)
[2021-12-23] MEDS ORDERED: MIDAZOLAM INJ 2MG/2ML VIAL (J2250 PER 1MG) As Ordered ONE (07:57)
[2021-12-23] MEDS ORDERED: LIDOCAINE 2% 100MG/5ML SDV (FOR ANES.) As Ordered ONE (08:00)
[2021-12-23] MEDS ORDERED: propofoL 200 MG/20 ML VIAL As Ordered ONE ×3 (08:00→12:07)
[2021-12-23 08:24] LABS: HEMATOCRIT 38.2 % (36.0-47.0); HEMOGLOBIN 12.6 g/dl (12.0-15.5); MEAN CORPUSCULAR HEMOGLOBIN 28.2 pg (27.0-33.0); MEAN CORPUSCULAR VOLUME 85.5 fl (80.0-96.0); PLATELET COUNT, AUTOMATED 285 10^3/uL (150-450); RED BLOOD COUNT 4.47 10^6/uL (4.00-5.40); WHITE BLOOD COUNT 6.7 10^3/uL (4.0-10.0)
[2021-12-23] MEDS ORDERED: dexameTHASONE 4 MG/ML 1ML VIAL (J1100 PER 1MG) As Ordered ONE (09:22)
[2021-12-23] MEDS ORDERED: TRANEXAMIC ACID 100 MG/ML 10ML VIAL As Ordered ONE ×2 (10:17→10:49)
[2021-12-23] MEDS ORDERED: ceFAZolin SOD 1 GM in D5W MINI-BAG PLUS 50 ML IV ONE (10:40)
[2021-12-23] MEDS ORDERED: PHENYLephrine 500MCG 5ML (100MCG/ML) SYRINGE As Ordered ONE (11:08)
[2021-12-23] MEDS ORDERED: ePHEDrine SULFATE 25 MG/5 ML(5MG/ML) SYRINGE As Ordered ONE (11:08)
[2021-12-23] MEDS ORDERED: diphenhydrAMINE 50MG/ML VIAL (J1200) As Ordered ONE (11:19)
[2021-12-23] MEDS ORDERED: LR 1,000 ML IV SCH (14:20)
[2021-12-23] MEDS ORDERED: traMADol 50 MG TAB PO PRN (14:20)
[2021-12-23] MEDS ORDERED: oxyCODONE 5MG TAB PO PRN ×2 (14:20)
[2021-12-23] MEDS ORDERED: fentaNYL 100 MCG/2 ML INJECTION IV PRN (14:20)
[2021-12-23] MEDS ORDERED: METOCLOPRAMIDE INJ 10MG/2ML VIAL (J2765 PER 1) IV PRN (14:20)
[2021-12-23] MEDS ORDERED: SENNA 8.6 MG TAB (SENOKOT) PO PRN (14:20)
[2021-12-23] MEDS ORDERED: MORPHINE 2 MG/ML 1ML VIAL (J2270) IV PRN (14:20)
[2021-12-23] MEDS ORDERED: ONDANSETRON 4MG/2ML VIAL IV PRN ×2 (14:20)
[2021-12-23] MEDS ORDERED: ACETAMINOPHEN TAB 650MG DOSE (2X325MG) PO PRN (15:55)
[2021-12-23 16:45] VITALS: BP 178/90
[2021-12-23] MEDS: ASCORBIC ACID 500 MG TAB PO SCH (16:56)
[2021-12-23] MEDS: FERROUS SULFATE 325MG TAB PO SCH (16:56)
[2021-12-23] MEDS: oxyCODONE 5MG TAB PO PRN ×2 (16:57→21:03)
[2021-12-23] MEDS: ACETAMINOPHEN TAB 650MG DOSE (2X325MG) PO SCH ×2 (16:57→21:05)
[2021-12-23 17:15] VITALS: BP 170/99
[2021-12-23 18:15] VITALS: BP 170/103
[2021-12-23] MEDS: ceFAZolin SOD 2 GM in IV 1 EA IV SCH (19:45)
[2021-12-23 19:55] VITALS: BP 122/76
[2021-12-23 20:42] VITALS: BP 172/100
[2021-12-23] MEDS ORDERED: SIMVASTATIN 20 MG TAB PO SCH (21:00)
[2021-12-23] MEDS: ASPIRIN 81MG ENTERIC TABLET PO SCH (21:03)
[2021-12-23] MEDS: DOCUSATE SODIUM 100MG CAPSULE PO SCH (21:05)
[2021-12-23] MEDS: NAPROXEN 250 MG TAB PO SCH (21:05)
[2021-12-23 23:56] VITALS: BP 147/85
[2021-12-24] MEDS: ACETAMINOPHEN TAB 650MG DOSE (2X325MG) PO SCH ×2 (03:36→09:40)
[2021-12-24] MEDS: ceFAZolin SOD 2 GM in IV 1 EA IV SCH (03:36)
[2021-12-24 05:32] VITALS: BP 145/86
[2021-12-24] MEDS: oxyCODONE 5MG TAB PO PRN ×2 (05:44→13:44)
[2021-12-24 07:07] LABS: HEMATOCRIT 33.5 % (36.0-47.0); MEAN CORPUSCULAR HGB CONC 32.8 g/dl (32.0-36.5); MEAN CORPUSCULAR VOLUME 85.2 fl (80.0-96.0); PLATELET COUNT, AUTOMATED 289 10^3/uL (150-450); RED BLOOD COUNT 3.93 10^6/uL (4.00-5.40); WHITE BLOOD COUNT 13.4 10^3/uL (4.0-10.0)
[2021-12-24 07:48] LABS: BLOOD UREA NITROGEN 22 MG/DL (7-18); CALCIUM LEVEL 8.4 MG/DL (8.8-10.2); CARBON DIOXIDE LEVEL 26 MEQ/L (21-32); CHLORIDE LEVEL 107 MEQ/L (98-107); CREATININE FOR GFR 0.91 MG/DL (0.55-1.30); GLOMERULAR FILTRATION RATE > 60.0 (>45); GLUCOSE, FASTING 151 MG/DL (70-100); POTASSIUM SERUM 3.6 MEQ/L (3.5-5.1); SODIUM LEVEL 142 MEQ/L (136-145)
[2021-12-24 08:25] VITALS: BP 145/86
[2021-12-24] MEDS ORDERED: OMEPRAZOLE 20MG CAP PO SCH (09:00)
[2021-12-24] MEDS: DOCUSATE SODIUM 100MG CAPSULE PO SCH (09:40)
[2021-12-24] MEDS: ASPIRIN 81MG ENTERIC TABLET PO SCH (09:40)
[2021-12-24] MEDS: NAPROXEN 250 MG TAB PO SCH (09:41)
[2021-12-24] MEDS: ASCORBIC ACID 500 MG TAB PO SCH (09:41)
[2021-12-24 09:44] VITALS: BP 161/88
[2021-12-24] MEDS: FERROUS SULFATE 325MG TAB PO SCH (09:44)
[2021-12-24 09:58] LABS: TOTAL 25(OH) VITAMIN D 12.2 NG/ML (30.0-100.0)
[2021-12-24] MEDS ORDERED: ASPI-551 PO (11:42)
[2021-12-24] MEDS ORDERED: OXYC-517 PO (11:42)
== END 2021-12-24 14:15 | disposition home or self-care (01) ==
LOC: M SDC 07:41 → M MS5PR 07:42
PROVIDERS: ADMIT Internal Medicine; ATTEND Internal Medicine
DX: M17.11 Unilateral primary osteoarthritis, right knee (principal); R06.83 Snoring; I10 Essential (primary) hypertension; E78.5 Hyperlipidemia, unspecified; K21.9 Gastro-esophageal reflux disease without esophagitis; E66.9 Obesity, unspecified; E55.9 Vitamin D deficiency, unspecified; Z79.899 Other long term (current) drug therapy; Z79.82 Long term (current) use of aspirin; Z87.891 Personal history of nicotine dependence
CPT/HCPCS: 27447; 36415; 73560; 80048; 82306; 85027; 88304; 88311; 96365; 96366; 96376; 97116; 97161; 97165; 97530; 97535; C1776; G0378; J0690; J1100; J1200; J2250; J2370; J3010; S2900

== ENCOUNTER 2022-01-02 11:46 | Emergency (ER) | payer MEDICARE ==
[~2022-01-02] VITALS: Ht 157.5 cm; Wt 93.2 kg
[~2022-01-02 11:46] MED LIST changes: -ACETAMINOPHEN 500 MG TAB PO ONE; +ASPI-551 PO; -LIDOCAINE 1% MDV 20ML VIAL SQ PRN; -LR 1,000 ML IV ONE; -NAPROXEN 250 MG TAB PO ONE; -NS 1,000 ML IV ONE; +OXYC-517 PO; -PREGABALIN 25 MG CAP (LYRICA) PO ONE; -ROPIVA 125MG/EPINEPH 0.25MG/CLONID 40MCG/KETOR 15MG IN NS 50ML SYRINGE PA ONE; -ceFAZolin SOD 1 GM in D5W MINI-BAG PLUS 50 ML IV ONE; -dexameTHASONE 4 MG/ML 1ML VIAL (J1100 PER 1MG) IV ONE
[2022-01-02 13:10] LABS: BASO % 0.4 % (0.0-1.0); EOS # 0.1 10^3/uL (0.0-0.5); EOS % 0.7 % (0.0-3.0); HEMATOCRIT 37.6 % (36.0-47.0); HEMOGLOBIN 12.4 g/dl (12.0-15.5); LYMPH # 1.7 10^3/uL (1.5-5.0); LYMPH % 22.9 % (24.0-44.0); MEAN CORPUSCULAR VOLUME 84.9 fl (80.0-96.0); MONO # 0.4 10^3/uL (0.0-0.8); NEUTROPHILS # 5.2 10^3/uL (1.5-8.5); NEUTROPHILS % 69.9 % (36.0-66.0); PLATELET COUNT, AUTOMATED 379 10^3/uL (150-450); RED BLOOD COUNT 4.43 10^6/uL (4.00-5.40); WHITE BLOOD COUNT 7.4 10^3/uL (4.0-10.0)
[2022-01-02 13:35] LABS: ALBUMIN 4.1 GM/DL (3.2-5.2); ALT/SGPT 26 U/L (12-78); BILIRUBIN,TOTAL 0.5 MG/DL (0.2-1.0); BLOOD UREA NITROGEN 19 MG/DL (7-18); CALCIUM LEVEL 9.3 MG/DL (8.8-10.2); CARBON DIOXIDE LEVEL 28 MEQ/L (21-32); CHLORIDE LEVEL 106 MEQ/L (98-107); CREATININE FOR GFR 0.72 MG/DL (0.55-1.30); GLOMERULAR FILTRATION RATE > 60.0 (>45); GLUCOSE, FASTING 103 MG/DL (70-100); POTASSIUM SERUM 3.9 MEQ/L (3.5-5.1); SODIUM LEVEL 140 MEQ/L (136-145); TOTAL PROTEIN 7.4 GM/DL (6.4-8.2)
[2022-01-02] MEDS ORDERED: ISOVUE-370 76% 100ML VIAL As Ordered ONE (14:58)
[2022-01-02 15:48] VITALS: BP 181/89
== END 2022-01-02 16:26 | disposition home or self-care (01) ==
LOC: M ED 11:46
DX: I10 Essential (primary) hypertension (principal); E78.5 Hyperlipidemia, unspecified; Z87.891 Personal history of nicotine dependence; Z79.899 Other long term (current) drug therapy; Z79.82 Long term (current) use of aspirin
CPT/HCPCS: 36415; 70450; 70496; 70498; 80053; 85025; 93005; 99285; Q9967

== ENCOUNTER → 2022-01-06 | Outpatient (CLI) | payer MEDICARE | LOC: M SOG 11:11 | PROVIDERS: ATTEND Orthopaedic Surgery Adult Reconstructive Orthopaedic Surgery | DX: Z96.651 Presence of right artificial knee joint (principal) ==

== ENCOUNTER → 2022-07-10 | Outpatient (CLI) | payer MEDICARE | LOC: M RAD 10:13 | PROVIDERS: ATTEND Family Medicine | DX: Z12.2 Encounter for screening for malignant neoplasm of respiratory organs (principal); Z87.891 Personal history of nicotine dependence ==

== ENCOUNTER → 2022-07-23 | Outpatient (REF) | payer MEDICARE ==
[2022-07-24 15:30] LABS: GC DNA AMPLIFICATION NEGATIVE (NEGATIVE)
== END ==
LOC: M SFHCADAM 12:21
PROVIDERS: ATTEND Physician Assistant
DX: N89.8 Other specified noninflammatory disorders of vagina (principal)

== ENCOUNTER → 2022-09-09 | Outpatient (REF) | payer MEDICARE ==
[2022-09-09 18:05] LABS: BASO % 0.5 % (0.0-1.0); EOS # 0.1 10^3/uL (0.0-0.5); EOS % 0.8 % (0.0-3.0); HEMATOCRIT 39.3 % (36.0-47.0); HEMOGLOBIN 12.9 g/dl (12.0-15.5); LYMPH # 2.5 10^3/uL (1.5-5.0); LYMPH % 33.2 % (24.0-44.0); MEAN CORPUSCULAR HEMOGLOBIN 28.4 pg (27.0-33.0); MEAN CORPUSCULAR HGB CONC 32.8 g/dl (32.0-36.5); MEAN CORPUSCULAR VOLUME 86.6 fl (80.0-96.0); MONO # 0.5 10^3/uL (0.0-0.8); MONO % 6.1 % (2.0-8.0); NEUTROPHILS # 4.5 10^3/uL (1.5-8.5); PLATELET COUNT, AUTOMATED 314 10^3/uL (150-450); RED BLOOD COUNT 4.54 10^6/uL (4.00-5.40); WHITE BLOOD COUNT 7.5 10^3/uL (4.0-10.0)
[2022-09-09 20:59] LABS: ALBUMIN 3.9 G/DL (3.2-5.2); ALT/SGPT 31 U/L (7.0-40); BILIRUBIN,TOTAL 0.3 MG/DL (0.3-1.2); BLOOD UREA NITROGEN 19 MG/DL (9-23); CALCIUM LEVEL 9.5 MG/DL (8.3-10.6); CARBON DIOXIDE LEVEL 27 MMOL/L (20-31); CHLORIDE LEVEL 102 MMOL/L (98-107); CHOLESTEROL LEVEL 197 MG/DL (<200); CHOLESTEROL RISK RATIO 3.69 (<5); CREATININE FOR GFR 0.74 MG/DL (0.55-1.30); GLOMERULAR FILTRATION RATE > 60.0 (>45); GLUCOSE, FASTING 123 MG/DL (74-106); HDL CHOLESTEROL 53.3 MG/DL (>40); LDL CHOLESTEROL 80.9 MG/DL (<100); NON-HDL-C 144 MG/DL; SODIUM LEVEL 141 MMOL/L (136-145); THYROID STIMULATING HORMONE 1.617 uIU/ML (0.55-4.78); TOTAL 25(OH) VITAMIN D 34.5 NG/ML (20.0-100.0); TRIGLYCERIDES LEVEL 314 MG/DL (<150)
== END ==
LOC: M SFHCADAM 14:06
PROVIDERS: ATTEND Physician Assistant Medical
DX: K21.9 Gastro-esophageal reflux disease without esophagitis (principal); E78.2 Mixed hyperlipidemia; I11.0 Hypertensive heart disease with heart failure; E55.9 Vitamin D deficiency, unspecified

== ENCOUNTER → 2023-02-12 | Outpatient (CLI) | payer MEDICARE, OTHER | LOC: M SOG 08:08 | PROVIDERS: ATTEND Orthopaedic Surgery | DX: M25.562 Pain in left knee (principal); M17.12 Unilateral primary osteoarthritis, left knee ==

== ENCOUNTER → 2023-04-08 | Outpatient (REF) | payer MEDICARE ==
[2023-04-08 17:17] LABS: ALBUMIN 3.6 G/DL (3.2-5.2); ALKALINE PHOSPHATASE 76 U/L (46-116); ALT/SGPT 26 U/L (7.0-40); AST/SGOT 16 U/L (<34); BILIRUBIN,TOTAL 0.4 MG/DL (0.3-1.2); BLOOD UREA NITROGEN 15 MG/DL (9-23); CARBON DIOXIDE LEVEL 27 MMOL/L (20-31); CHLORIDE LEVEL 105 MMOL/L (98-107); CHOLESTEROL LEVEL 192 MG/DL (<200); CHOLESTEROL RISK RATIO 3.91 (<5); CREATININE FOR GFR 0.64 MG/DL (0.55-1.30); GLOMERULAR FILTRATION RATE > 60.0 (>45); GLUCOSE, FASTING 115 MG/DL (74-106); POTASSIUM SERUM 3.5 MMOL/L (3.5-5.1); SODIUM LEVEL 138 MMOL/L (136-145); TOTAL PROTEIN 6.9 G/DL (5.7-8.2); TRIGLYCERIDES LEVEL 235 MG/DL (<150)
[2023-04-08 17:18] LABS: THYROID STIMULATING HORMONE 2.074 uIU/ML (0.55-4.78)
[2023-04-08 17:19] LABS: TOTAL 25(OH) VITAMIN D 30.2 NG/ML (20.0-100.0)
[2023-04-08 17:22] LABS: HEMOGLOBIN A1c 5.5 % (4.0-6.0)
[2023-04-08 17:43] LABS: CREATININE, URINE 184.8 MG/DL; MAU/CREAT RATIO 1.6 MCG/MG (0.0-30.0)
== END ==
LOC: M SFHCADAM 13:29
PROVIDERS: ATTEND Physician Assistant Medical
DX: K21.9 Gastro-esophageal reflux disease without esophagitis (principal); E78.2 Mixed hyperlipidemia; E66.01 Morbid (severe) obesity due to excess calories; I11.9 Hypertensive heart disease without heart failure; E55.9 Vitamin D deficiency, unspecified; Z79.899 Other long term (current) drug therapy

== ENCOUNTER → 2023-11-17 | Outpatient (CLI) | payer MEDICARE | LOC: M RAD 12:14 | PROVIDERS: ATTEND Physician Assistant Medical | DX: Z00.00 Encounter for general adult medical examination without abnormal findings (principal); Z87.891 Personal history of nicotine dependence; R91.1 Solitary pulmonary nodule ==

== ENCOUNTER → 2024-05-03 | Outpatient (REF) | payer OTHER ==
[2024-05-03 17:33] LABS: BASO % 0.6 % (0.0-1.0); EOS # 0.1 10^3/uL (0.0-0.5); EOS % 1.4 % (0.0-3.0); HEMATOCRIT 41.8 % (36.0-47.0); HEMOGLOBIN 13.3 g/dl (12.0-15.5); LYMPH # 1.9 10^3/uL (1.5-5.0); LYMPH % 30.1 % (24.0-44.0); MEAN CORPUSCULAR HEMOGLOBIN 28.2 pg (27.0-33.0); MEAN CORPUSCULAR HGB CONC 31.8 g/dl (32.0-36.5); MEAN CORPUSCULAR VOLUME 88.6 fl (80.0-96.0); MONO # 0.5 10^3/uL (0.0-0.8); MONO % 7.4 % (2.0-8.0); NEUTROPHILS # 3.8 10^3/uL (1.5-8.5); NEUTROPHILS % 60.3 % (36.0-66.0); PLATELET COUNT, AUTOMATED 310 10^3/uL (150-450); RED BLOOD COUNT 4.72 10^6/uL (4.00-5.40); WHITE BLOOD COUNT 6.3 10^3/uL (4.0-10.0)
[2024-05-03 17:37] LABS: ALBUMIN 3.7 G/DL (3.2-5.2); ALKALINE PHOSPHATASE 74 U/L (46-116); ALT/SGPT 20 U/L (7.0-40); AST/SGOT 12 U/L (<34); BILIRUBIN,TOTAL 0.4 MG/DL (0.3-1.2); BLOOD UREA NITROGEN 23 MG/DL (9-23); CALCIUM LEVEL 9.8 MG/DL (8.3-10.6); CARBON DIOXIDE LEVEL 30 MMOL/L (20-31); CHLORIDE LEVEL 107 MMOL/L (98-107); CHOLESTEROL LEVEL 235 MG/DL (<200); CHOLESTEROL RISK RATIO 4.91 (<5); CREATININE FOR GFR 0.67 MG/DL (0.55-1.30); GLOMERULAR FILTRATION RATE > 60.0 (>45); GLUCOSE, FASTING 94 MG/DL (74-106); HDL CHOLESTEROL 47.8 MG/DL (>40); LDL CHOLESTEROL 117.4 MG/DL (<100); NON-HDL-C 187.2 MG/DL; POTASSIUM SERUM 4.3 MMOL/L (3.5-5.1); SODIUM LEVEL 142 MMOL/L (136-145); TOTAL 25(OH) VITAMIN D 33.9 NG/ML (20.0-100.0); TRIGLYCERIDES LEVEL 349 MG/DL (<150)
[2024-05-03 17:38] LABS: THYROID STIMULATING HORMONE 1.432 uIU/ML (0.55-4.78)
[2024-05-03 19:03] LABS: HEMOGLOBIN A1c 5.2 % (4.0-6.0)
[2024-05-03 20:30] LABS: FREE T4 1.03 NG/DL (0.89-1.76)
== END ==
LOC: M SFHCADAM 11:17
PROVIDERS: ATTEND Physician Assistant Medical
DX: F41.1 Generalized anxiety disorder (principal); I11.0 Hypertensive heart disease with heart failure; K21.9 Gastro-esophageal reflux disease without esophagitis; E78.2 Mixed hyperlipidemia; E55.9 Vitamin D deficiency, unspecified; Z79.899 Other long term (current) drug therapy

== ENCOUNTER → 2024-11-02 | Outpatient (REF) | payer MEDICARE ==
[2024-11-02 18:11] LABS: BASO % 0.4 % (0.0-1.0); EOS # 0.1 10^3/uL (0.0-0.5); EOS % 1.3 % (0.0-3.0); HEMATOCRIT 40.2 % (36.0-47.0); HEMOGLOBIN 13.2 g/dl (12.0-15.5); LYMPH # 2.3 10^3/uL (1.5-5.0); LYMPH % 32.4 % (24.0-44.0); MEAN CORPUSCULAR HEMOGLOBIN 28.6 pg (27.0-33.0); MEAN CORPUSCULAR HGB CONC 32.8 g/dl (32.0-36.5); MEAN CORPUSCULAR VOLUME 87.2 fl (80.0-96.0); MONO # 0.5 10^3/uL (0.0-0.8); NEUTROPHILS # 4.2 10^3/uL (1.5-8.5); NEUTROPHILS % 58.6 % (36.0-66.0); PLATELET COUNT, AUTOMATED 297 10^3/uL (150-450); RED BLOOD COUNT 4.61 10^6/uL (4.00-5.40); WHITE BLOOD COUNT 7.1 10^3/uL (4.0-10.0)
[2024-11-02 18:20] LABS: ALBUMIN 3.9 G/DL (3.2-5.2); ALKALINE PHOSPHATASE 72 U/L (35-104); ALT/SGPT 26 U/L (7.0-40); AST/SGOT 17 U/L (<34); BILIRUBIN,TOTAL 0.3 MG/DL (0.3-1.2); BLOOD UREA NITROGEN 20 MG/DL (9-23); CALCIUM LEVEL 10.3 MG/DL (8.3-10.6); CARBON DIOXIDE LEVEL 31 MMOL/L (20-31); CHLORIDE LEVEL 105 MMOL/L (98-107); CHOLESTEROL LEVEL 245 MG/DL (<200); CHOLESTEROL RISK RATIO 4.33 (<5); CREATININE FOR GFR 0.67 MG/DL (0.55-1.30); GLOMERULAR FILTRATION RATE > 60.0 (>45); GLUCOSE, FASTING 96 MG/DL (74-106); HDL CHOLESTEROL 56.5 MG/DL (>40); LDL CHOLESTEROL 130.3 MG/DL (<100); NON-HDL-C 188.5 MG/DL; POTASSIUM SERUM 4.4 MMOL/L (3.5-5.1); SODIUM LEVEL 141 MMOL/L (136-145); TOTAL PROTEIN 7.5 G/DL (5.7-8.2); TRIGLYCERIDES LEVEL 291 MG/DL (<150)
[2024-11-02 18:21] LABS: FREE T4 1.01 NG/DL (0.89-1.76); THYROID STIMULATING HORMONE 1.741 uIU/ML (0.55-4.78)
[2024-11-02 18:22] LABS: TOTAL 25(OH) VITAMIN D 37.7 NG/ML (20.0-100.0)
[2024-11-02 18:43] LABS: HEMOGLOBIN A1c 5.5 % (4.0-6.0)
== END ==
LOC: M SFHCADAM 12:12
PROVIDERS: ATTEND Physician Assistant Medical
DX: F41.1 Generalized anxiety disorder (principal); K21.9 Gastro-esophageal reflux disease without esophagitis; E78.2 Mixed hyperlipidemia; E66.01 Morbid (severe) obesity due to excess calories; E55.9 Vitamin D deficiency, unspecified; Z79.899 Other long term (current) drug therapy

== ENCOUNTER → 2025-05-05 | Outpatient (CLI) | payer MEDICARE | LOC: M RAD 16:22 | PROVIDERS: ATTEND Physician Assistant Medical | DX: Z87.891 Personal history of nicotine dependence (principal) ==